=== PATIENT | male | born 1945 | race Caucasian/White ===

== ENCOUNTER 2021-01-04 20:59 | Emergency (ER) | payer MEDICARE ==
[~2021-01-04] VITALS: Ht 172.7 cm; Wt 77.1 kg
[2021-01-04] MEDS ORDERED: EUTHYROX175 MC1 PO (21:42)
[2021-01-04] MEDS ORDERED: ELIQUIS5 M2 PO (21:42)
[2021-01-04] MEDS ORDERED: Prinivil10 MG PO (21:42)
[2021-01-04] MEDS ORDERED: SULF500 PO (21:43)
[2021-01-04] MEDS ORDERED: MAGNESIUM CITR100 MG PO (21:44)
[2021-01-04] MEDS ORDERED: Vitamin B Comple1 EA PO (21:44)
== END 2021-01-04 22:45 | disposition home or self-care (01) ==
LOC: ER 20:59
DX: R04.0 Epistaxis (principal); Z79.01 Long term (current) use of anticoagulants; Z79.899 Other long term (current) drug therapy
CPT/HCPCS: 30901; 99283-25; A9270